=== PATIENT | female | born 1985 | race African-American/Black ===

== ENCOUNTER 2017-04-21 09:42 | Emergency (ER) | payer SELFPAY ==
[~2017-04-21] VITALS: Ht 175.3 cm; Wt 132.0 kg
[~2017-04-21 09:42] MED LIST: NYST100010 TOP; [UNRECOGNIZED DRUG - OTHER] TOP
[2017-04-21 09:44] VITALS: BP 146/80; PULSE 86; RESP 12; TEMP 98.6; O2SAT 97
--- NOTE | 2017-04-21 10:05 | PD ---
HPI Chief Complaint: Skin Problem Time Seen by Provider: 10:05 Travel History International Travel<30 days: No Contact w/Intl Traveler<30days: No Traveled to known affect area: No History of Present Illness HPI 31-year-old female presents to emergency department complaining of a lesion to her left anterior rucker. Patient states that she noticed this 2-3 days ago was tender to the touch. Patient states that the lesion has since become less tender and has formed a bubble/blister on the top of the red portion. Patient denies exudate but is concerned that this is a spider bite and will develop into a serious infection. Patient is diabetic and does not take any medication for her diabetes. Patient denies fever, chills. Patient denies any medication use. PFSH Past Medical History Asthma: Yes Anxiety: Yes Depression: Yes Diabetes: Yes Diminished Hearing: No Hypertension: Yes Integumentary: Yes (HERPES) Immunizations Current: Yes : 2 Para: 2 Miscarriage: 0 : 0 Ovarian Cysts: Yes Past Surgical History Abdominal Surgery: Yes ([facility]) Section: Yes Social History Alcohol Use: No Tobacco Use: Yes (1/2 PPD) Substance Use: Yes (marijuana) Allergies-Medications (Allergen,Severity, Reaction): Coded Allergies: No Known Allergies (Verified Adverse Reaction, Unknown, 04/21/17) Reported Meds & Prescriptions Reported Meds & Active Scripts Active Bactrim DS (Sulfamethoxazole-Trimethoprim) 800-160 Mg Tab 1 Tab PO BID Review of Systems Except as stated in HPI: all other systems reviewed are Neg Physical Exam Narrative GENERAL: Well-nourished, well-developed patient. SKIN: Focused skin assessment warm/dry. HEAD: Normocephalic. EYES: No scleral icterus. No injection or drainage. NECK: Supple, trachea midline. No JVD or lymphadenopathy. CARDIOVASCULAR: Regular rate and rhythm without murmurs, gallops, or rubs. RESPIRATORY: Breath sounds equal bilaterally. No accessory muscle use. MUSCULOSKELETAL: No cyanosis, or edema. Right leg, mid anterior rucker- 2 and half centimeter round area of your edema with central white fluctuant papule. No expression of fluid. Erythematous area without fluctuance or significant induration BACK: Nontender without obvious deformity. No CVA tenderness. Data Data Last Documented VS Vital Signs Date Time Temp Pulse Resp B/P (MAP) Pulse Ox O2 Delivery O2 Flow Rate FiO2 04/21/17 10:41 04/21/17 09:44 98.6 86 12 97 Orders Orders Ed Discharge Order (04/21/17 10:19) MDM Medical Decision Making Medical Screen Exam Complete: Yes Emergency Medical Condition: Yes Differential Diagnosis Cellulitis versus abscess versus impetigo Narrative Course 31-year-old female presents to emergency department complaining of a lesion to her left anterior rucker. Patient states that she noticed this 2-3 days ago was tender to the touch. Patient states that the lesion has since become less tender and has formed a bubble/blister on the top of the red portion. Patient denies exudate but is concerned that this is a spider bite and will develop into a serious infection. Patient is diabetic and does not take any medication for her diabetes. Patient denies fever, chills. Patient denies any medication use. Vital signs stable Physical exam consistent with cellulitis, no fluctuance appreciated for incision and drainage. A 3 mm papular area of induration that has come to head. I did not feel that incision and drainage was necessary for this lesion. Patient may be developing a cellulitis in the area however, with warm compresses and regular personal hygiene this papule will be resolved. Patient has poor follow-up. Antibiotics for cellulitis and developing infection. Patient advised to find a primary care physician and be evaluated in 2-3 days. Follow-up with the emergency department if symptoms persist or worsen Diagnosis Primary Impression: Cellulitis and abscess of leg Referrals: [facility] Additional Instructions: Take all medication as prescribed. Use warm compresses over the area. Continue personal hygiene as usual. If her symptoms persist or worsen return to the emergency room. Follow-up with a primary care physician within 2-3 days. Scripts Sulfamethoxazole-Trimethoprim (Bactrim DS) 800-160 Mg Tab 1 TAB PO BID for Infection, #14 TAB 0 Refills Prov: Derek Wei MD 04/21/17 Disposition: 01 DISCHARGE HOME Condition: Stable Yanira Murray Apr 21, 2017 10:05
[2017-04-21] MEDS ORDERED: CEPH-460 PO (10:18)
[2017-04-21] MEDS ORDERED: BACT800T5 PO (10:18)
== END 2017-04-21 10:42 | disposition home or self-care (01) ==
LOC: NEPD 09:42
DX: L03.116 Cellulitis of left lower limb (principal); L02.416 Cutaneous abscess of left lower limb; E11.9 Type 2 diabetes mellitus without complications; J45.909 Unspecified asthma, uncomplicated; F41.9 Anxiety disorder, unspecified; F32.9 Major depressive disorder, single episode, unspecified; I10 Essential (primary) hypertension; F17.200 Nicotine dependence, unspecified, uncomplicated
CPT/HCPCS: 99283